=== PATIENT | male | born 1980 | race Caucasian/White ===

== ENCOUNTER 2018-01-26 00:02 | Emergency (ER) | payer MEDICAID ==
[~2018-01-26] VITALS: Ht 170.2 cm; Wt 97.7 kg
[2018-01-26 00:12] VITALS: Ht 170.2 cm; Wt 97.7 kg
[2018-01-26 02:55] VITALS: BP 138/69
== END 2018-01-26 03:00 | disposition home or self-care (01) ==
LOC: ED 00:02
DX: F15.10 Other stimulant abuse, uncomplicated (principal); F23 Brief psychotic disorder; F31.9 Bipolar disorder, unspecified
CPT/HCPCS: J2060